=== PATIENT | male | born 1990 | race Two or more races ===

== ENCOUNTER 2016-11-26 23:03 | Emergency (ER) | payer OTHER ==
[~2016-11-26] VITALS: Ht 182.9 cm; Wt 108.9 kg
[2016-11-27] MEDS ORDERED: TETANUS-DIPTH-ACEL PERTUSSIS 0.5ML SYRG IM ONE (02:45)
[2016-11-27 02:52] VITALS: BP 147/83
== END 2016-11-27 03:10 | disposition home or self-care (01) ==
LOC: ER 23:03
DX: S61.432A Puncture wound without foreign body of left hand, initial encounter (principal); Z23 Encounter for immunization; W26.0XXA Contact with knife, initial encounter; Y93.89 Activity, other specified; Y99.8 Other external cause status; Y92.89 Other specified places as the place of occurrence of the external cause
CPT/HCPCS: 73130; 90471; 90715; 99284; J7030